=== PATIENT | female | born 1995 | race Caucasian/White ===

== ENCOUNTER 2018-12-25 18:50 | Emergency (ER) | payer OTHER ==
[~2018-12-25] VITALS: Ht 162.6 cm; Wt 98.7 kg
[2018-12-25 19:18] VITALS: BP 126/91; Ht 162.6 cm; Wt 98.7 kg
== END 2018-12-25 19:50 | disposition home or self-care (01) ==
LOC: ED 18:50
DX: H66.91 Otitis media, unspecified, right ear (principal); J06.9 Acute upper respiratory infection, unspecified